=== PATIENT | female | born 1970 | race Caucasian/White ===

== ENCOUNTER 2022-08-27 03:36 | Emergency (ER) | payer MEDICAID, SELFPAY ==
[2022-08-27 03:38] VITALS: BMI 19.9
[2022-08-27 03:41] VITALS: BP 137/90; PULSE 99; RESP 16; TEMP 36.6; O2SAT 95; BMI 19.9
--- NOTE | 2022-08-27 04:00 | XR_ITS ---
PROCEDURE INFORMATION: Exam: XR Right Forearm Exam date and time: 08/27/2022 4:04 AM Age: 51 years old Clinical indication: Pain; Lower or forearm; Right; Additional info: Animal attack TECHNIQUE: Imaging protocol: Radiologic exam of the right forearm. Views: 2 views. COMPARISON: No relevant prior studies available. FINDINGS: Bones/joints: Normal. Soft tissues: Some air and likely soft tissue edema is seen in the mid forearm. IMPRESSION: Soft tissue changes as described. No bony fractures present.
--- NOTE | 2022-08-27 04:06 | PC.NURSE ---
RAD at [facility] for XRAY
--- NOTE | 2022-08-27 04:21 | PC.NURSE ---
Dr. Pastor at to speak with pt
--- NOTE | 2022-08-27 04:26 | HMH.EDANIB ---
Discharge Plan Disposition Patient Disposition: Home, Self-Care Prescriptions Prescriptions: New ketorolac 10 mg tablet 10 mg PO Q6H PRN (Reason: pain) 3 Days Qty: 12 0RF amoxicillin-pot clavulanate [Augmentin] 500-125 mg tablet 1 tab PO BID Qty: 20 0RF No Action gabapentin 600 mg Tablet 600 mg PO HS buprenorphine-naloxone [Suboxone] 2-0.5 mg Film 2 film sublingual DAILY Referrals Follow up/Referrals: Provider,Referral, MD [Primary Care Provider] - See instructions Clinical Impressions Clinical Impression: Dog bite, Laceration Instructions Patient Instructions: Animal Bites Discharge ED Provider: Darby (ED),Ephraim Cormier Animal Bite HPI General Chief Complaint: Animal Bite Stated Complaint: Dog Bite Time Seen by Provider: 08/27/22 04:00 Mode of Arrival: EMS Source of Information: Patient and Medical Record Limitations: No Limitations Description of Symptoms (Recalled from ER Triage Doc. by RN): Pt arrives via ems. Pt c/o being attacked by her dog. Presents with multiple punctures on her right arm and leg. Patient is awake and oriented upon arrival. VS stable. Pulses are palpable. History of Present Illness HPI narrative: dog bites as was attacked- she reported to me trying to get dog off - multiple bites to rt upper ext complaint: animal bite Onset (ago): hour(s) Animal: dog Description of animal: household pet Mechanism: bite Right: arm, forearm and lower leg Context: other (see above ) Related Data Patient tetanus UTD: Yes Home Medications Medication Instructions Recorded Confirmed buprenorphine 2 mg-naloxone 0.5 mg 2 film sublingual DAILY drug 08/27/22 08/27/22 sublingual film (Suboxone) withdrawal gabapentin 600 mg tablet 600 mg PO HS nerve pain 08/27/22 08/27/22 Previous Rx's Medication Instructions Recorded amoxicillin 500 mg-potassium 1 tab PO BID #20 tabs 08/27/22 clavulanate 125 mg tablet (Augmentin) ketorolac 10 mg tablet 10 mg PO Q6H PRN pain 3 days #12 08/27/22 tabs Allergies Allergy/AdvReac Type Severity Reaction Status Date / Time No Known Allergies Allergy Verified 08/27/22 03:47 [facility] Disclaimer: The information contained in this section may have been updated after the patient was seen, as this information can be updated by other users. Social History Smoking Status: Current every day smoker alcohol intake: never current occupational status: employed Travel in the last 8 weeks: None ROS Obtained: Yes All systems reviewed & no additional complaints except as documented Physical Exam General General appearance: alert Head Head exam: normocephalic Eye Eye exam: Present PERRL and EOMI ENT ENT exam: Present mucous membranes moist Neck Neck exam: Present trachea midline Respiratory Respiratory exam: Present normal lung sounds bilaterally; Absent respiratory distress Cardiovascular Cardiovascular exam: Present regular rate Abdominal Exam Abdominal exam: Present soft Extremities Exam Extremities exam: Present other (bruising and sts rt upper ext - neurovascular ok and tendon ok and no fb ); Absent joint swelling Neurological Exam Neurological exam: Present alert, oriented X3 and CN II-XII intact; Absent motor sensory deficit Skin Skin exam: Absent rash Medical Decision Making Medical Records Medical records reviewed: Yes I reviewed the patient's medical records. Toño Inquiry Pt receiving controlled substance: No Vital Signs: 08/27/22 03:41 Temperature 98 F Temperature Source Oral Pulse Rate [Apical] 99 H Respiratory Rate 16 Blood Pressure [Right Arm] 137/90 Blood Pressure Mean [Right Arm] 105 Blood Pressure Source [Right Arm] Automatic Cuff Blood Pressure Position [Right Arm] Sitting 02 Sat by Pulse Oximetry 95 Oxygen Delivery Method Room Air Orders (Tests/Meds): ED MEDICATIONS Discontinued Medications Generic Name Dose Route Start Last Admin Trade Name Leti PRN Kathy
--- NOTE | 2022-08-27 05:12 | PC.NURSE ---
Dr. Pastor at [facility] to suture
[2022-08-27 06:57] VITALS: BP 140/90; PULSE 90; RESP 18; TEMP 36.6; O2SAT 99
== END 2022-08-27 07:00 | disposition home or self-care (01) ==
PROVIDERS: Emergency Provider Emergency Medicine
DX: S51.811A Laceration without foreign body of right forearm, initial encounter (principal); W54.0XXA Bitten by dog, initial encounter
CPT/HCPCS: 12032; 73090; 96361; 96374; 96375; 96376; 99284; J2405